=== PATIENT | female | born 2005 | race African-American/Black ===

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

== ENCOUNTER 2023-01-26 13:34 | Inpatient (IN) | payer OTHER ==
[~2023-01-26] VITALS: Ht 162.6 cm; Wt 59.1 kg
[~2023-01-26 13:34] MED LIST changes: +DEPA1TAB3 PO; +HALO10TA20 PO; +QUET1TAB17 PO
[2023-01-26 14:22] LABS: HEMATOCRIT 36.6 % (36.0-47.0); HEMOGLOBIN 12.3 g/dl (12.0-15.5); MEAN CORPUSCULAR HEMOGLOBIN 30.7 pg (27.0-33.0); MEAN CORPUSCULAR HGB CONC 33.6 g/dl (32.0-36.5); MEAN CORPUSCULAR VOLUME 91.3 fl (80.0-96.0); PLATELET COUNT, AUTOMATED 195 10^3/uL (150-450); RED BLOOD COUNT 4.01 10^6/uL (4.00-5.40); WHITE BLOOD COUNT 6.5 10^3/uL (4.0-10.0)
[2023-01-26 14:51] LABS: HCG, SERUM QUALITATIVE NEGATIVE (NEGATIVE)
[2023-01-26 14:52] LABS: ETHYL ALCOHOL (ETHANOL) 0.009 % (0.000-0.010)
[2023-01-26 14:53] LABS: SALICYLATE LEVEL < 3.0 MG/DL (<30)
[2023-01-26 14:54] LABS: ALKALINE PHOSPHATASE 58 U/L (46-116); ALT/SGPT 18 U/L (7.0-40); AST/SGOT 12 U/L (<34); BILIRUBIN,DIRECT 0.1 MG/DL (<0.4); BILIRUBIN,TOTAL 0.4 MG/DL (0.3-1.2); BLOOD UREA NITROGEN 10 MG/DL (9-23); CALCIUM LEVEL 9.1 MG/DL (8.5-10.1); CARBON DIOXIDE LEVEL 24 MMOL/L (20-31); CHLORIDE LEVEL 106 MMOL/L (98-107); CREATININE FOR GFR 0.64 MG/DL (0.55-1.30); GLUCOSE, FASTING 97 MG/DL (60-100); POTASSIUM SERUM 3.3 MMOL/L (3.5-5.1); SODIUM LEVEL 140 MMOL/L (136-145); TOTAL PROTEIN 7.2 G/DL (5.7-8.2)
[2023-01-26 14:56] LABS: THYROID STIMULATING HORMONE 0.503 uIU/ML (0.48-4.17)
[2023-01-26 15:17] LABS: BARBITURATES URINE NEGATIVE (NEGATIVE)
[2023-01-26 15:18] LABS: AMPHETAMINES LEVEL URINE NEGATIVE (NEGATIVE); BENZODIAZEPINES URINE NEGATIVE (NEGATIVE); METHADONE URINE NEGATIVE (NEGATIVE); OPIATES URINE NEGATIVE (NEGATIVE); PHENCYCLIDINE URINE NEGATIVE (NEGATIVE)
[2023-01-26 15:19] LABS: CANNABINOIDS URINE POSITIVE (NEGATIVE); COCAINE METABOLITE URINE POSITIVE (NEGATIVE)
[2023-01-26 15:46] LABS: VALPROIC ACID (DEPAKOTE) 105.7 UG/ML (50.0-100.0)
[2023-01-26] MEDS ORDERED: ACETAMINOPHEN TAB 650MG DOSE (2X325MG) PO ONE (17:00)
[2023-01-26] MEDS ORDERED: MOM 30ML SUSPENSION UDC PO PRN (18:20)
[2023-01-26] MEDS ORDERED: MAALOX 30 ML SUSP *UDC PO PRN (18:20)
[2023-01-26] MEDS ORDERED: BUSP5TA PO (19:31)
[2023-01-26] MEDS ORDERED: ABIL1INJ2 IM (19:31)
[2023-01-26] MEDS ORDERED: ABIL10TA9 PO (19:31)
[2023-01-26] MEDS ORDERED: DEPA1TAB3 PO (19:31)
[2023-01-26] MEDS ORDERED: LAMO25TA4 PO (19:31)
[2023-01-26] MEDS ORDERED: HALO10TA20 PO (19:31)
[2023-01-26] MEDS ORDERED: QUET1TAB17 PO (19:31)
[2023-01-26] MEDS ORDERED: HOME MED LIST COMPLETE! XX SCH (19:35)
[2023-01-27] MEDS: diphenhydrAMINE 25MG CAP PO PRN ×3 (01:10→22:59)
[2023-01-27] MEDS: ACETAMINOPHEN TAB 650MG DOSE (2X325MG) PO PRN ×2 (01:19→11:24)
[2023-01-27 06:00] VITALS: BP 140/76; TEMP 97.7; O2SAT 98
[2023-01-27 18:00] VITALS: BP 143/84; TEMP 97.6
[2023-01-27] MEDS ORDERED: LIDOCAINE 5% (LIDODERM) PATCH TD ONE (18:00)
[2023-01-27] MEDS: IBUPROFEN 400MG TAB PO PRN (19:52)
[2023-01-28] MEDS: ACETAMINOPHEN TAB 650MG DOSE (2X325MG) PO PRN ×2 (04:23→12:55)
[2023-01-28 06:26] VITALS: BP 124/94; TEMP 98; O2SAT 98
[2023-01-28] MEDS: diphenhydrAMINE 25MG CAP PO PRN ×2 (08:17→19:01)
[2023-01-28] MEDS ORDERED: ARIPiprazole MONOHYDRATE 400 MG INJ (ABILIFY)(FREE PSY INPT ONLY) IM SCH (09:00)
[2023-01-28] MEDS: busPIRone 5 MG TAB PO SCH ×2 (10:01→19:59)
[2023-01-28] MEDS: ARIPiprazole 10 MG TAB PO SCH (10:01)
[2023-01-28] MEDS: DIVALPROEX 500 MG TAB PO SCH ×2 (10:02→20:00)
[2023-01-28 16:24] VITALS: BP 134/78; TEMP 98.2; O2SAT 98
[2023-01-28] MEDS: QUEtiapine FUMARATE 25 MG TAB PO SCH (19:58)
[2023-01-28] MEDS: IBUPROFEN 400MG TAB PO PRN (22:43)
[2023-01-29] MEDS: DIVALPROEX 500 MG TAB PO SCH ×2 (08:27→19:59)
[2023-01-29] MEDS: busPIRone 5 MG TAB PO SCH ×2 (08:27→19:59)
[2023-01-29] MEDS: PILL CUTTER 1 EACH XX PRN (08:27)
[2023-01-29] MEDS: ARIPiprazole 10 MG TAB PO SCH (08:27)
[2023-01-29] MEDS: ACETAMINOPHEN TAB 650MG DOSE (2X325MG) PO PRN ×2 (10:28→22:05)
[2023-01-29] MEDS: IBUPROFEN 400MG TAB PO PRN (13:39)
[2023-01-29 16:15] VITALS: BP 132/94; TEMP 97.9; O2SAT 98
[2023-01-29] MEDS: QUEtiapine FUMARATE 25 MG TAB PO SCH (19:59)
[2023-01-30 06:27] VITALS: BP 139/89; TEMP 96.6; O2SAT 95
[2023-01-30] MEDS: DIVALPROEX 500 MG TAB PO SCH ×2 (08:52→20:12)
[2023-01-30] MEDS: ARIPiprazole 10 MG TAB PO SCH (08:52)
[2023-01-30] MEDS: busPIRone 5 MG TAB PO SCH ×2 (08:52→20:12)
[2023-01-30] MEDS: diphenhydrAMINE 25MG CAP PO PRN ×2 (09:22→17:53)
[2023-01-30] MEDS: IBUPROFEN 400MG TAB PO PRN (13:30)
[2023-01-30 17:46] VITALS: BP 123/84; TEMP 98.4; O2SAT 100
[2023-01-30] MEDS: QUEtiapine FUMARATE 50MG TAB PO SCH (20:12)
[2023-01-30] MEDS: PILL CUTTER 1 EACH XX PRN (20:12)
[2023-01-31 06:47] VITALS: BP 127/74; TEMP 97.4; O2SAT 95
[2023-01-31] MEDS: DIVALPROEX 500 MG TAB PO SCH ×2 (08:09→20:27)
[2023-01-31] MEDS: ARIPiprazole 10 MG TAB PO SCH (08:09)
[2023-01-31] MEDS: PILL CUTTER 1 EACH XX PRN (08:09)
[2023-01-31] MEDS: busPIRone 5 MG TAB PO SCH ×2 (08:09→20:27)
[2023-01-31 15:46] VITALS: BP 139/64; TEMP 98.3; O2SAT 99
[2023-01-31] MEDS: IBUPROFEN 400MG TAB PO PRN (16:07)
[2023-01-31] MEDS: diphenhydrAMINE 25MG CAP PO PRN (18:05)
[2023-01-31 18:25] VITALS: BP 139/64; TEMP 98.3; O2SAT 99
[2023-01-31] MEDS: QUEtiapine FUMARATE 50MG TAB PO SCH (20:27)
[2023-02-01] MEDS: diphenhydrAMINE 25MG CAP PO PRN ×3 (03:20→21:54)
[2023-02-01 05:50] VITALS: BP 116/61; TEMP 97.5; O2SAT 100
[2023-02-01] MEDS: ARIPiprazole 10 MG TAB PO SCH (08:28)
[2023-02-01] MEDS: DIVALPROEX 500 MG TAB PO SCH ×2 (08:28→20:08)
[2023-02-01] MEDS: busPIRone 5 MG TAB PO SCH ×2 (08:29→20:09)
[2023-02-01 11:55] VITALS: TEMP 97.3
[2023-02-01 17:34] VITALS: BP 114/58; TEMP 98.2; O2SAT 99
[2023-02-01] MEDS: QUEtiapine FUMARATE 50MG TAB PO SCH (20:08)
[2023-02-01] MEDS: IBUPROFEN 400MG TAB PO PRN (21:55)
[2023-02-02] MEDS: ARIPiprazole 10 MG TAB PO SCH (08:12)
[2023-02-02] MEDS: busPIRone 5 MG TAB PO SCH ×2 (08:12→21:14)
[2023-02-02] MEDS: DIVALPROEX 500 MG TAB PO SCH ×2 (08:13→21:14)
[2023-02-02 18:07] VITALS: BP 115/57; TEMP 97.6; O2SAT 100
[2023-02-02] MEDS: QUEtiapine FUMARATE 50MG TAB PO SCH (21:14)
[2023-02-03 06:35] VITALS: BP 117/58; TEMP 97.7; O2SAT 97
[2023-02-03] MEDS: busPIRone 5 MG TAB PO SCH ×2 (08:09→21:17)
[2023-02-03] MEDS: DIVALPROEX 500 MG TAB PO SCH ×2 (08:09→21:17)
[2023-02-03] MEDS: ARIPiprazole 10 MG TAB PO SCH (08:09)
[2023-02-03 18:15] VITALS: BP 102/53; TEMP 98.7
[2023-02-03] MEDS: QUEtiapine FUMARATE 50MG TAB PO SCH (21:17)
[2023-02-04 06:17] VITALS: BP 112/58; TEMP 98.8; O2SAT 97
[2023-02-04] MEDS: busPIRone 5 MG TAB PO SCH ×2 (08:50→21:20)
[2023-02-04] MEDS: ARIPiprazole 10 MG TAB PO SCH (08:50)
[2023-02-04] MEDS: PILL CUTTER 1 EACH XX PRN ×2 (08:51→21:19)
[2023-02-04] MEDS: DIVALPROEX 500 MG TAB PO SCH ×2 (08:52→21:20)
[2023-02-04] MEDS: diphenhydrAMINE 25MG CAP PO PRN (11:04)
[2023-02-04 18:26] VITALS: BP 113/53; TEMP 98.3; O2SAT 97
[2023-02-04] MEDS: QUEtiapine FUMARATE 50MG TAB PO SCH (21:20)
[2023-02-05 06:54] VITALS: BP 121/56; TEMP 97.7; O2SAT 100
[2023-02-05] MEDS: PILL CUTTER 1 EACH XX PRN (08:19)
[2023-02-05] MEDS: busPIRone 5 MG TAB PO SCH (08:19)
[2023-02-05] MEDS: DIVALPROEX 500 MG TAB PO SCH (08:19)
[2023-02-05] MEDS: ARIPiprazole 10 MG TAB PO SCH (08:19)
[2023-02-05] MEDS ORDERED: BUSP5TA PO (09:39)
[2023-02-05] MEDS ORDERED: QUET50TA4 PO (09:39)
[2023-02-05] MEDS ORDERED: DEPA1TAB3 PO (09:39)
[2023-02-05] MEDS ORDERED: ABIL1INJ2 IM (09:39)
[2023-02-05] MEDS ORDERED: HALO10TA20 PO (09:39)
[2023-02-05] MEDS ORDERED: ABIL10TA9 PO (09:39)
== END 2023-02-05 12:00 | disposition home or self-care (01) | DRG 750 ==
LOC: M ED 13:34 → M ED INP 18:17 → M PSY 01-27 01:13
PROVIDERS: ADMIT Student in an Organized Health Care Education/Training Program; ATTEND Student in an Organized Health Care Education/Training Program
DX: F20.9 Schizophrenia, unspecified (principal); F19.150 Other psychoactive substance abuse with psychoactive substance-induced psychotic disorder with delusions; K21.9 Gastro-esophageal reflux disease without esophagitis; F60.89 Other specific personality disorders; F31.5 Bipolar disorder, current episode depressed, severe, with psychotic features; Z81.8 Family history of other mental and behavioral disorders; Z81.3 Family history of other psychoactive substance abuse and dependence; Z91.128 Patient's intentional underdosing of medication regimen for other reason; Z88.8 Allergy status to other drugs, medicaments and biological substances